=== PATIENT | female | born 1985 | race Caucasian/White ===

== ENCOUNTER 2017-04-04 11:38 | Inpatient (IN) | payer OTHER ==
[~2017-04-04] VITALS: Ht 170.2 cm; Wt 68.6 kg
[2017-04-04 11:52] VITALS: Ht 170.2 cm; Wt 68.6 kg
[2017-04-04 11:53] VITALS: BP 111/67; PULSE 96; RESP 20
[2017-04-04 13:34] LABS: BASOPHILS % 0.2 % (0.0-2.0); HEMOGLOBIN 13.4 g/dl (12.0-16.0); LYMPHOCYTES # 0.7 10^3/ul (0.8-2.9); MEAN CORPUSCULAR HEMOGLOBIN 31.8 pg (29.0-33.0); MEAN CORPUSCULAR HGB CONC 33.5 g/dl (32.0-37.0); MEAN CORPUSCULAR VOLUME 94.8 fl (82.0-101.0); MEAN PLATELET VOLUME 9.9 fl (7.4-10.4); MONOCYTE # 0.4 10^3/ul (0.3-0.9); MONOCYTES % 2.8 % (0.0-11.0); NEUTROPHIL # 12.2 10^3/ul (1.6-7.5); NEUTROPHILS % 91.4 % (39.0-77.0); PLATELET COUNT 294 10^3/UL (140-415); RED BLOOD COUNT 4.22 10^6/ul (4.20-5.40); RED CELL DISTRIBUTION WIDTH 13.2 % (11.5-14.5); WHITE BLOOD COUNT 13.3 10^3/ul (4.8-10.8)
[2017-04-04] MEDS: LACTATED RINGER'S 1,000 ML IV PRN ×2 (13:34→14:32)
[2017-04-04 13:54] LABS: ADD UMIC YES; UR ASCORBIC ACID NEGATIVE (NEGATIVE); UR BACTERIA FEW /HPF (NONE SEEN); UR BILIRUBIN (Dip) NEGATIVE (NEGATIVE); UR BLOOD (Dip) NEGATIVE (NEGATIVE); UR CLARITY SLIGHTLY CLOUDY (CLEAR); UR COLOR YELLOW (YELLOW); UR GLUCOSE (Dip) NEGATIVE (NEGATIVE); UR KETONES (Dip) 2+ mg/dL (NEGATIVE); UR LEUKOCYTE ESTERASE (Dip) NEGATIVE Leu/ul (NEGATIVE); UR MUCUS FEW /HPF (NONE SEEN); UR NITRITE (Dip) NEGATIVE (NEGATIVE); UR RBC 2 /HPF (0-5); UR SPECIFIC GRAVITY (Dip) 1.025 (1.003-1.030); UR SQUAMOUS EPITHELIAL CELL FEW /HPF (FEW); UR TOTAL PROTEIN (Dip) 1+ mg/dl (NEGATIVE); UR UROBILINOGEN (Dip) NEGATIVE (NEGATIVE)
[2017-04-04 13:59] LABS: ALBUMIN/GLOBULIN RATIO 1.25; BILIRUBIN,INDIRECT 0.4 mg/dl (0-1.1); BILIRUBIN,TOTAL 0.4 mg/dl (0.2-1.3); CALCIUM 8.5 mg/dl (8.4-10.2); CREATININE 0.52 mg/dl (0.44-1.00); POTASSIUM 3.9 mmol/L (3.5-5.1); TOTAL PROTEIN 7.2 g/dl (6.1-8.1)
--- NOTE | 2017-04-04 16:29 | RADRPT ---
PROCEDURE: US evaluation of amniotic fluid volume. Transvaginal sonography of the cervix. CLINICAL INDICATION: Vomiting. Abdominal pain. TECHNIQUE: Multiple sonographic images of the gravid uterus were obtained utilizing hernandez-scale trang ging. Sagittal and transverse images were obtained. Transvaginal sonography of the cervix was also performed. The images were reviewed on a PACS workstation. MAXIMO was measured. COMPARISON: No prior studies are available for comparison. FINDINGS: There is a single live intrauterine . heart rate is 159 beats per minute. Position is cephalic/variable. Placenta is anterior grade 1 with no abruption or previa. MAXIMO is 13.8 cm. (Normal = 5-20 cm.) Cervical length is 3.1 cm. IMPRESSION: 1. MAXIMO is 13.8 cm. 2. Cervical length is 3.1 cm. RPTAT: QQ .Junior Martin MD, Date Time Electronically viewed and signed by .Junior Martin MD, on 04/04/2017 16:29 .R/
[2017-04-04] MEDS ORDERED: ONDANSETRON 4 MG INJ IV STA (17:48)
[2017-04-04] MEDS ORDERED: ONDANSETRON 4 MG INJ ONE (17:50)
--- NOTE | 2017-04-04 18:24 | HP ---
Date/Time of Note Date/Time of Note DATE: 04/04/17 TIME: 18:22 OB - History Hx of Present Free Text/Dictation 26+wks GA with epigastric pain and vomiting : 1 Para: 0 Care: Good Care Ultrasounds: Normal mid trimester US Obstetrical Complications: None Medical Complications: None Past Family/Social History * Past Medical, Surgical, Family and Obstetric Histories reviewed from chart. OB Admission Exam Vital Signs Vital Signs Vital Signs Date Time Temp Pulse Resp B/P Pulse Ox O2 Delivery O2 Flow Rate FiO2 04/04/17 11:53 97.0 96 20 111/67 Room Air Physical Exam Abdomen: WNL Extremities: Normal Reflexes: Normal Cervical Dilatation: None Effacement: 0% Station: Ballotable Membranes: Intact Heart Rate: 140's Accelerations: Accelerations Present Decelerations: No Decelerations Varibility: Moderate Last 72 hours Lab Results CBC & BMP 04/04/17 13:00 Liver Function Test 04/04/17 13:00 Alanine Aminotransferase (ALT/SGPT) 31 Albumin 4.0 Alkaline Phosphatase 101 Aspartate Amino Transf (AST/SGOT) 29 Direct Bilirubin 0.00 Total Protein 7.2 OB Assessment/Plan Reason for admission: observation Plan: Expectant Management Other plan: Ultrasound Labs Close Observation JM ARCHER M.D. Apr 04, 2017 18:24
--- NOTE | 2017-04-04 18:50 | RADRPT ---
PROCEDURE: US Abdomen. CLINICAL INDICATION: abdominal pain TECHNIQUE: Multiple real-time images were acquired of the patient's right upper quadrant abdomen a nd retroperitoneum utilizing a high resolution transducer. COMPARISON: None FINDINGS: The liver demonstrates normal echogenicity. The liver is normal in size and no focal solid lesions are seen. The liver measures 13.8 cm in length. The portal vein is patent with normal direction of f low. No intrahepatic biliary dilatation is seen. No gallstones are identified within the gallbladder. There is no pericholecystic fluid or gallbladd er wall thickening. The common bile duct measures 3.5 mm in maximal dimension. The visualized portions of the pancreas are unremarkable. The tail of the pancreas is not seen. No free fluid is identified. The right kidney is normal in size, and demonstrate normal echogenicity and cortical thickness. The right kidney measures 10.4 cm in long dimension. There is mild right-sided hydronephrosis. There a re no kidney stones. RPTAT: AA IMPRESSION: Mild right-sided hydronephrosis. .Yogi Esparza MD, MD Date Time Electronically viewed and signed by .Yogi Esparza MD, on 04/04/2017 18:50 .S/
[2017-04-04] MEDS ORDERED: ONDANSETRON 4 MG INJ IV PRN (19:00)
[2017-04-04] MEDS: LACTATED RINGER'S 1,000 ML IV SCH ×2 (23:27→23:28)
[2017-04-04] MEDS ORDERED: ACETAMINOPHEN 325 MG TAB PO PRN (23:30)
[2017-04-05] MEDS: LACTATED RINGER'S 1,000 ML IV SCH (06:27)
--- NOTE | 2017-04-05 17:00 | DS ---
Date/Time of Note Date/Time of Note DATE: 04/05/17 TIME: 16:58 Obstetrical Discharge Record Final Diagnosis Final Diagnosis: not delivered Other Final Diagnosis Gastroenteritis Condition on Discharge Physical Assessment Voiding: Yes Bowel Movement: Yes Abdomen and Incision: Abdomen soft NT Calf Tenderness: No Patient Condition: Stable EDIE CHANG MD Apr 05, 2017 17:00
--- NOTE | 2017-04-05 17:01 | QN ---
Documentation Comment Patient is tolerating regular diet. Patient denies any nausea, vomiting or abdominal pain. EDIE CHANG MD Apr 05, 2017 17:01
== END 2017-04-05 17:41 | disposition home or self-care (01) | DRG 781 ==
LOC: L-D 11:38 → OBT 11:38 → OBG 18:45 → OBT 18:45
PROVIDERS: ADMIT Obstetrics & Gynecology; ATTEND Obstetrics & Gynecology
DX: O99.612 Diseases of the digestive system complicating pregnancy, second trimester (principal); K52.9 Noninfective gastroenteritis and colitis, unspecified; Z3A.26 26 weeks gestation of pregnancy
CPT/HCPCS: 36415; 76705; 76815; 76817; 80053; 81001; 82150; 82731; 83690; 85025; 96360; G0463; J2405; J7120

== ENCOUNTER 2017-06-29 19:45 | Inpatient (IN) | END 2017-07-02 14:20 | disposition home or self-care (01) | DRG 775 ==